=== PATIENT | male | born 1985 | race Caucasian/White ===

== ENCOUNTER 2025-07-02 22:40 | Emergency (ER) | payer MEDICARE, OTHER ==
[2025-07-02 23:27] LABS: PLATELET COUNT,PLT 241 K/uL (130-375); RED BLOOD CELL COUNT 4.07 M/uL (4.14-5.76); WHITE BLOOD CELL COUNT,WBC 12.4 K/uL (3.2-11.0)
[2025-07-02 23:46] LABS: A/G RATIO 1.0 (1.2-2.2); ALANINE AMINOTRANSFERASE,ALT 17 U/L (12-78); ASPARTATE AMNIOTRANSFERASE,AST 22 U/L (15-37); BILIRUBIN TOTAL 0.4 mg/dL (0.2-1.0); BLOOD UREA NITROGEN,BUN 26 mg/dL (7-18); CARBON DIOXIDE,CO2 28 mmol/L (21-32); CHLORIDE,CL 106 mmol/L (100-108); CREATININE 1.6 mg/dL (0.8-1.3); EST CRCL DRUG DOSING (CG) 66.67 mL/min; ESTIMATED GFR 56 mL/min (>60); GLUCOSE RANDOM 150 mg/dL (74-106); POTASSIUM,K 4.2 mmol/L (3.6-5.2); PROTEIN TOTAL,TP 6.8 g/dL (6.4-8.2); SODIUM,NA 142 mmol/L (140-148)
[2025-07-03 00:08] LABS: BAND ABSOLUTE MAN 2.48 K/uL; BAND PERCENT MAN 20 % (5-11); EOSINOPHILS ABSOLUTE MAN 0.50 K/uL (0.00-0.40); EOSINOPHILS PERCENT MAN 4 % (2-4); LYMPHOCYTES ABSOLUTE MAN 1.12 K/uL (0.8-3.3); LYMPHOCYTES PERCENT MAN 9 % (24-44); METAMYELOCYTE ABSOLUTE MAN 0.37 K/uL; METAMYELOCYTE PERCENT MAN 3 %; MONOCYTES ABSOLUTE MAN 2.60 K/uL (0.20-0.90); MONOCYTES PERCENT MAN 21 % (2-6); MYELOCYTE ABSOLUTE MAN 0.12; MYELOCYTE PERCENT MAN 1 %; NEUTROPHILS ABSOLUTE MAN 5.21 K/uL (1.0-7.6); SEG NEUTROPHILS PERCENT MAN 42 % (36-66)
== END 2025-07-03 08:10 | disposition home or self-care (01) ==
LOC: JP.ED 22:40 → JP.MS 07-03 01:54
PROVIDERS: ADMIT Internal Medicine; ATTEND Internal Medicine
DX: R06.2 Wheezing (principal); Z94.0 Kidney transplant status; Z79.899 Other long term (current) drug therapy
CPT/HCPCS: 36415; 71045; 80053; 83605; 84484; 85025; 94640; 99285; A9270; G0378